=== PATIENT | female | born 1970 | race Hispanic/Latino ===

== ENCOUNTER 2022-06-16 12:39 | Observation (INO) | payer OTHER ==
[~2022-06-16] VITALS: Ht 157.5 cm; Wt 100.8 kg
[2022-06-16] MEDS ORDERED: PANTOPRAZOLE 40 MG/VIAL IVP SCH (13:05)
[2022-06-16] MEDS ORDERED: PANTOPRAZOLE 40 MG/VIAL ONE (13:10)
[2022-06-16 13:27] LABS: BASOPHILS % (AUTO) 0.3 % (0.0-5.0); EOSINOPHILS % (AUTO) 1.2 % (0.0-8.0); HEMATOCRIT 42.8 % (36-48); MEAN CORPUSCULAR HEMOGLOBIN 25.9 pg (27.0-33.0); MEAN CORPUSCULAR HGB CONC 32.2 g/dL (32.0-36.0); MEAN CORPUSCULAR VOLUME 80.5 fL (79-99); NEUTROPHILS % (AUTO) 45.7 % (40.0-77.0); PLATELET COUNT (AUTO) 208 K/uL (130-400); RED BLOOD CELL COUNT(AUTO) 5.32 MIL/uL (4.00-5.50)
[2022-06-16 13:47] LABS: ALBUMIN 3.6 g/dL (3.5-5.0); CREATININE 0.7 mg/dL (0.5-1.5); POTASSIUM 3.3 mmol/L (3.5-5.1); TOTAL PROTEIN, SERUM 7.6 g/dL (6.0-8.3)
[2022-06-16 14:02] LABS: APPEARANCE,URINE CLEAR (CLEAR); BILIRUBIN,URINE NEGATIVE (NEGATIVE); COLOR,URINE YELLOW (YELLOW); GLUCOSE, URINE (UA) >=1000 mg/dL (NEGATIVE); KETONES,URINE NEGATIVE (NEGATIVE); LEUKOCYTE ESTERASE ,URINE NEGATIVE (NEGATIVE); NITRATE,URINE NEGATIVE (NEGATIVE); OCCULT BLOOD,URINE SMALL (NEGATIVE); PROTEIN,URINE NEGATIVE (NEGATIVE); UROBILINOGEN,URINE 0.2 mg/dL (0.2-1.0)
[2022-06-16 14:15] LABS: BACTERIA,URINE Rare /HPF (None Seen); RBC,URINE 0-1 /HPF (0-1); YEAST,URINE BUDDING Few /HPF (None Seen)
[2022-06-16 14:16] LABS: B-TYPE NATRIURETIC PEPTIDE 76 pg/mL (0-100)
[2022-06-16 14:16] LABS: WBC,URINE None Seen /HPF (0-1)
[2022-06-16] MEDS: NITROGLYCERIN 0.4 MG SL TAB SL SCH ×2 (14:37→14:38)
[2022-06-16 14:55] LABS: HCG,QUALITATIVE URINE NEGATIVE (NEGATIVE)
[2022-06-16] MEDS ORDERED: 0.9%NACL 1000ML 1,000 ML IV SCH (15:30)
[2022-06-16] MEDS ORDERED: ONDANSETRON 4MG INJ IV PRN (15:30)
[2022-06-16] MEDS ORDERED: ACETAMINOPHEN 325 MG TAB PO PRN (15:30)
[2022-06-16] MEDS ORDERED: DIAZEPAM 5 MG TABLET PO ONE (15:30)
[2022-06-16 15:42] LABS: INR 0.94 (0.85-1.15); PROTHROMBIN TIME 10.3 SEC (9.6-11.6)
[2022-06-16 15:51] LABS: HEMOGLOBIN A1C 7.8 % (4.0-6.0)
[2022-06-16] MEDS ORDERED: LIDOCAINE HCL 1% 20 ML VIAL ONE (16:09)
[2022-06-16] MEDS ORDERED: MIDAZOLAM HCL 1 MG/ML 2ML VIAL ONE (16:09)
[2022-06-16] MEDS ORDERED: CEFAZOLIN SODIUM 1 GM VIAL ONE (16:09)
[2022-06-16] MEDS ORDERED: BUPIVACAINE/PF 0.25% 30ML VIAL IJ ONE (16:09)
[2022-06-16] MEDS ORDERED: FENTANYL CITRATE PF 50 MCG/1 ML 2ML VIAL ONE (16:10)
[2022-06-16] MEDS ORDERED: IOHEXOL-350 50ML VIAL IV ONE (16:49)
[2022-06-16 18:40] VITALS: BP 144/81
[2022-06-16 19:28] VITALS: BP 156/78
[2022-06-16] MEDS ORDERED: LISI5TAB21 PO (19:35)
[2022-06-16] MEDS ORDERED: METF-446 PO (19:37)
[2022-06-16] MEDS ORDERED: SEMA1PEN3 SQ (19:37)
[2022-06-16] MEDS ORDERED: GLIM4TAB36 PO (19:37)
[2022-06-16] MEDS: ACETAMINOPHEN 325 MG TAB PO PRN (20:05)
[2022-06-16] MEDS: FAMOTIDINE 20MG VIAL IV SCH (20:05)
[2022-06-16 23:42] VITALS: BP 115/73
[2022-06-17] MEDS: CEFAZOLIN SODIUM 1 GM VIAL IVP ONE ×2 (00:03→00:13)
[2022-06-17] MEDS: ACETAMINOPHEN 325 MG TAB PO PRN ×3 (00:51→10:47)
[2022-06-17 03:41] LABS: BASOPHILS % (AUTO) 0.4 % (0.0-5.0); EOSINOPHILS % (AUTO) 1.9 % (0.0-8.0); HEMATOCRIT 36.9 % (36-48); LYMPHOCYTES % (AUTO) 46.6 % (21.0-51.0); MEAN CORPUSCULAR HEMOGLOBIN 25.9 pg (27.0-33.0); MEAN CORPUSCULAR HGB CONC 32.2 g/dL (32.0-36.0); MEAN CORPUSCULAR VOLUME 80.2 fL (79-99); MONOCYTES % (AUTO) 11.4 % (3.0-13.0); NEUTROPHILS % (AUTO) 38.9 % (40.0-77.0); PLATELET COUNT (AUTO) 187 K/uL (130-400); RED CELL DISTRIBUTION WIDTH 14.1 % (11.0-15.5); WHITE BLOOD COUNT (AUTO) 5.2 K/uL (4.8-10.8)
[2022-06-17 03:57] LABS: CREATININE 0.7 mg/dL (0.5-1.5); MAGNESIUM 1.6 mg/dL (1.80-2.40); PHOSPHORUS 3.5 mg/dL (2.5-4.9)
[2022-06-17 04:02] VITALS: BP 123/61
[2022-06-17] MEDS ORDERED: MAGNESIUM OXIDE 400 MG TABLET PO SCH (04:30)
[2022-06-17] MEDS ORDERED: KCL 20 MEQ ERTAB PO ONE (04:30)
[2022-06-17 07:04] VITALS: BP 136/72
[2022-06-17] MEDS ORDERED: KCL 20 MEQ ERTAB PO SCH (07:30)
[2022-06-17] MEDS: FAMOTIDINE 20MG VIAL IV SCH (08:01)
[2022-06-17 11:28] VITALS: BP 152/63
[2022-06-17 15:24] VITALS: BP 124/78
== END 2022-06-17 15:58 | disposition home or self-care (01) ==
LOC: EDH 12:39 → EDHIP 15:23 → INTOOBSV 15:23 → 2DH 18:36
PROVIDERS: ADMIT Internal Medicine; ATTEND Internal Medicine
DX: I44.2 Atrioventricular block, complete (principal); E87.6 Hypokalemia; E11.9 Type 2 diabetes mellitus without complications; I10 Essential (primary) hypertension; G47.33 Obstructive sleep apnea (adult) (pediatric); E78.00 Pure hypercholesterolemia, unspecified; E66.9 Obesity, unspecified; Z86.16 Personal history of COVID-19; Z90.49 Acquired absence of other specified parts of digestive tract; Z95.0 Presence of cardiac pacemaker; Z79.899 Other long term (current) drug therapy
CPT/HCPCS: 33208; 83036; 84443; 82550; 84484 ×2; 80053; 83880; 85025 ×2; 85378; 85610; 81001; 81025; 36415 ×2; 71045 ×2; 99291; 94660; 96374; 96375; 93005 ×2; 96376; 83735; 84100; 80048; C1785; C1898 ×2; C1894; J3490 ×3; J3010; J0690 ×2; J2250; C9113; Q9967; G0378; 99156; 99157

== ENCOUNTER → 2024-01-27 | Outpatient (CLI) | payer OTHER ==
[~2024-01-27] MED LIST: METF-446 PO; SEMA1PEN3 SQ
== END | disposition home or self-care (01) ==
LOC: RAH 01-03 14:34
PROVIDERS: ATTEND Student in an Organized Health Care Education/Training Program
DX: M25.411 Effusion, right shoulder (principal); M25.711 Osteophyte, right shoulder; M75.41 Impingement syndrome of right shoulder
CPT/HCPCS: 73221

== ENCOUNTER → 2025-02-28 | Outpatient (CLI) | payer OTHER ==
--- NOTE | 2025-02-28 15:21 | HMCIMG ---
CT ABDOMEN/PELVIS W/O CONTRAST HISTORY: Hydronephrosis COMPARISON: None TECHNIQUE: Multiple sequential axial images of the abdomen and pelvis were obtained from the dome of the diaphragm through symphysis pubis. Patient was not given contrast through intravenous route. Oral contrast was not given. FINDINGS: No pleural effusion is seen bilaterally. There is no evidence of parenchymal disease or pulmonary nodule of the visualized lower lungs. Degenerative changes of the thoracolumbar spine are present. The heart is not enlarged. The liver, spleen, adrenal glands and pancreas are unremarkable. There are bilateral extrarenal pelvis. Parapelvic renal cysts. If needed, Nuclear Renal scan may be helpful. There is a small periumbilical hernia with fat content. There is no evidence of hydronephrosis bilaterally. No evidence of renal stone is seen. Fecal material is seen in the colon. There are normal size retroperitoneal and mesenteric lymph nodes. No ascites is seen. Atherosclerotic changes are present. Pelvic sidewalls are symmetric bilaterally. Bladder is well distended without wall thickening. IMPRESSION: 1. There are bilateral extrarenal pelvis. Parapelvic renal cysts. If needed, Nuclear Renal scan may be helpful. There is no evidence of hydronephrosis bilaterally. No evidence of renal stone is seen. There is a small periumbilical hernia with fat content. CT was performed with one or more following dose reduction techniques: automated exposure control, adjustment of the mA and kv according to patient's size, or use of a iterative reconstruction technique.
== END | disposition home or self-care (01) ==
LOC: RAH 12:24
PROVIDERS: ATTEND Internal Medicine Nephrology
DX: N28.1 Cyst of kidney, acquired (principal); N13.30 Unspecified hydronephrosis; K42.9 Umbilical hernia without obstruction or gangrene; M47.815 Spondylosis without myelopathy or radiculopathy, thoracolumbar region; I70.0 Atherosclerosis of aorta
CPT/HCPCS: 74176

== ENCOUNTER → 2025-08-22 | Outpatient (CLI) | payer OTHER ==
[~2025-08-22] VITALS: Ht 5.1 cm; Wt 100.2 kg
[~2025-08-22] MED LIST changes: +ALBU18HF7 IH; +ATEN25TA PO; +BUDE10.26 IH; +EMPA25TA PO; +IBUP-2077 PO; +LISI20TA24 PO; +MECL-226 PO; +METF-444 PO; -METF-446 PO; +METH-811 PO; +OMEP40CA21 PO; +OXCA150T27 PO; +PSYL575P22 PO; -SEMA1PEN3 SQ; +SIMV-43 PO; +SUMA50TA17 PO; +TRAMADOL HCL PO
[2025-08-22 09:59] LABS: IMMATURE GRANULOCYTE ABSOLUTE 0.07 K/uL (0-1); NUCLEATED RED BLOOD CELLS 0.0 % (0.0-0.19); PLATELET COUNT (AUTO) 217 K/uL (130-400); RED BLOOD CELL COUNT(AUTO) 5.25 MIL/uL (4.00-5.50); RED CELL DISTRIBUTION WIDTH 12.8 % (11.0-15.5); WHITE BLOOD COUNT (AUTO) 7.1 K/uL (4.8-10.8)
--- NOTE | 2025-08-22 10:28 | NUR ---
BARIATRIC INITIAL ASSESSMENT VISIT 1 OF 6 Wt: 221 lbs DOS: 08/22/25 Pt seeking bariatric procedure to aid in wt loss and improve medical health conditions. Pt reported MD yanez/ben triana, takes vit. 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, 2 children live at home, has a young grandchild at home, no one is a picky eater at home, goes grocery shopping, everyone cooks for themselves, Pt is allergic to pork and a certain amount of dairy, BG check 1x in the AM fasting, eats 3 meals per day + 2 snacks, regular soda 1x per week, salty snacks 1-2 x per day, fast food 1 x per week, takes 30 mins to eat, does not struggle with emotional eating, no dx with anxiety but feels anxiety, 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 RD conducted 24 hr recall: Breakfast: 2 eggs + 1 white toast + regular sugar + coffee Lunch: tuna - avocado + 3 saltine crackers + 1/2 regular gatorade Dinner: noddle soup + white bread w/ 1 slice of turkey deli meat Snack(s): [address] reviewed portion sizes with pt, reviewed healthy plate, informed Pt of importance of protein intake, demonstrated DM chart, reviewed carbohydrate sources, Pt verbalized understanding. Pt completed wt management program diet readiness questionnaire. Results are as follows: Section 1: Goals and Attitudes. Score of 28. The path is clear with respect to goals and attitudes. Sections 2: Hunger and Eating cues. Score 7. You may have a moderate tendency to eat just because food is available. Dieting may be easier for you if you try to resist external cues and eat only when you are physically hungry. Section 3: Control over Eating. Score 4. You recover rapidly from mistakes. However, if you frequently alternate between eating out of control and dieting strictly, you may have a serious eating problem and should get professional help. Section 4: Jewell Eating and Purging: Score 0. It appears that binge eating, and purging is not a problem for you. Section 5: Emotional Eating: Score 4. You do not appear to let your emotions affect your eating. Section 6: Exercise Patterns and Attitudes: Score 20. It looks like the path is clear for you to be active. Now think of ways to get motivated. Goals Established: -walk 3 x per week for 15 min -increase protein intake -start consuming SF products Pt in agreement with goals and is aware she will need to cut carbonated beverages, sweets and caffeine prior to surgery. Recommended for Pt to complete visits with Dietitian to prepare for bariatric procedure. Thank you for this visit. Addendum: 08/22/25 at [address] Amended: Links added.
[2025-08-22 10:37] LABS: % IRON SATURATION 23.7 % (22-44); IRON, SERUM 97.0 mcg/dL (50-170)
[2025-08-22 11:07] LABS: ASPARTATE AMINOTRANSFERASE 13 U/L (10-37); CREATININE 0.6 mg/dL (0.5-1.0); GLOMERULAR FILTR. RATE CALC 107 mL/min (>90); GLUCOSE,RANDOM 101 mg/dL (70-105); LDL DIRECT 142 mg/dL (0-99); SODIUM SERUM 140 mmol/L (136-145); TOTAL PROTEIN, SERUM 7.9 g/dL (6.0-8.3); UREA NITROGEN, BLOOD 15 mg/dL (7-18)
== END | disposition home or self-care (01) ==
LOC: DTH 08:04
PROVIDERS: ATTEND Surgery
DX: E66.01 Morbid (severe) obesity due to excess calories (principal); G47.33 Obstructive sleep apnea (adult) (pediatric); I10 Essential (primary) hypertension; Z71.3 Dietary counseling and surveillance; K21.9 Gastro-esophageal reflux disease without esophagitis; E11.9 Type 2 diabetes mellitus without complications; E78.00 Pure hypercholesterolemia, unspecified; K76.0 Fatty (change of) liver, not elsewhere classified; M19.91 Primary osteoarthritis, unspecified site
CPT/HCPCS: 36415; 80053; 80061; 82306; 82607; 82728; 82746; 83036; 83540; 83550; 83735; 84207; 84425; 84436; 84443; 84446; 84481; 84590; 84630; 85025; 97802

== ENCOUNTER → 2025-09-04 | Outpatient (CLI) | payer OTHER ==
--- NOTE | 2025-09-04 11:00 | NUR ---
BARIATRIC FOLLOW UP NOTE VISIT 2 OF 6 Wt: 223.8 LBS DOS:09/04/25 Upon follow up visit, pt presents with a 2 lb wt gain. Pt continues with steroid shots, has not started SF items, liked protein shakes, has been walking 30 mins 3x per week, continues with MVI QD + 2,[address] conducted 24 hr food recall. Breakfast: 1 egg + white bread + coffee + almond milk Lunch: fish soup + veggies Dinner: white bread w/ peanut butter + banana + honey S: fruit jello + [address] reviewed simple CHO and complex CHO intake, reviewed labs, encouraged Pt to see PCP in regards to her labs,encouraged pt to decrease soft drink (even sugar free) consumption secondary to carbonation and caffeine, pt verbalized understanding. RD and pt established goals for next month: -increase protein in meals -walking 35 mins 3x per week -start incorporating SF items Thank you for this visit Addendum: 09/04/25 at [address] Amended: Links added.
== END | disposition home or self-care (01) ==
LOC: DTH 09:55
PROVIDERS: ATTEND Surgery
DX: E66.01 Morbid (severe) obesity due to excess calories (principal); G47.33 Obstructive sleep apnea (adult) (pediatric); I10 Essential (primary) hypertension; M19.91 Primary osteoarthritis, unspecified site; Z71.3 Dietary counseling and surveillance; K21.9 Gastro-esophageal reflux disease without esophagitis; E11.9 Type 2 diabetes mellitus without complications; E78.00 Pure hypercholesterolemia, unspecified; K76.0 Fatty (change of) liver, not elsewhere classified
CPT/HCPCS: 97803

== ENCOUNTER → 2025-10-04 | Outpatient (CLI) | payer OTHER ==
--- NOTE | 2025-10-04 10:12 | EKG ---
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 : 1970 Requested By: JESSICA HOLMAN Order Number: [id number] Reading MD: Joselyn Ortiz Measurements Intervals [place] Rate: 87 P: 57 MA: 224 QRS: 89 QRSD: 86 T: -2 QT: 383 QTc: 458 Interpretive Statements Sinus rhythm Atrial premature complexes Prolonged MA interval Low voltage, precordial leads Borderline T abnormalities, diffuse leads Compared to ECG 07/13/2025 14:29:41 Atrial premature complex(es) now present First degree AV block now present T-wave abnormality now present Right-axis deviation no longer present Electronically Signed On 10-04-2025 21:15:26 [employer]ION PI[employer]URE [employer]OTOGRAPHER by Joselyn Ortiz Please click the below link to view image of tracing.
--- NOTE | 2025-10-04 17:02 | HMCIMG ---
EXAM: CR CHEST, 1 VIEW CLINICAL HISTORY: PRE-OP (Hx) COMPARISON: None provided TECHNIQUE: Single frontal radiograph of the chest was obtained. FINDINGS: Lines/Devices: Pacemaker: Device and leads are visualized in appropriate position. No evidence of lead fracture or displacement. Lungs: Clear lung combs; no focal consolidation, pleural effusion, or pneumothorax. No ground-glass opacities are observed. Prominent bilateral hilar vascular markings noted. Mild bilateral peribronchial thickening suggesting mild bronchitis.Diaphragm and costophrenic angles are normal. Cardiac silhouette: Normal in size and contour. The central airway and mediastinal contours are unremarkable. Bones and soft tissues: Small well defined rounded sclerotic lesion is seen at the left humeral neck measuring 7mm. IMPRESSION: 1. Mild bilateral peribronchial thickening suggesting mild bronchitis. /[place]
== END | disposition home or self-care (01) ==
LOC: LAB 08:00
PROVIDERS: ATTEND Surgery
DX: I49.1 Atrial premature depolarization (principal); I44.0 Atrioventricular block, first degree; I10 Essential (primary) hypertension; E11.9 Type 2 diabetes mellitus without complications; M19.91 Primary osteoarthritis, unspecified site; G47.33 Obstructive sleep apnea (adult) (pediatric); E66.01 Morbid (severe) obesity due to excess calories; E78.00 Pure hypercholesterolemia, unspecified; K76.0 Fatty (change of) liver, not elsewhere classified; K21.9 Gastro-esophageal reflux disease without esophagitis; J98.09 Other diseases of bronchus, not elsewhere classified
CPT/HCPCS: 71045; 93005

== ENCOUNTER → 2025-10-04 | Outpatient (CLI) | payer OTHER | END | disposition home or self-care (01) | LOC: DTH 07:38 | PROVIDERS: ATTEND Surgery | DX: E66.01 Morbid (severe) obesity due to excess calories (principal); I10 Essential (primary) hypertension; K21.9 Gastro-esophageal reflux disease without esophagitis; G47.33 Obstructive sleep apnea (adult) (pediatric); M19.91 Primary osteoarthritis, unspecified site; K76.0 Fatty (change of) liver, not elsewhere classified; Z71.3 Dietary counseling and surveillance | CPT/HCPCS: 97803 ==

== ENCOUNTER → 2025-10-11 | Outpatient (CLI) | payer OTHER | END | disposition home or self-care (01) | LOC: DTH 09:55 | PROVIDERS: ATTEND Surgery | DX: E66.01 Morbid (severe) obesity due to excess calories (principal); G47.33 Obstructive sleep apnea (adult) (pediatric); I10 Essential (primary) hypertension; K21.9 Gastro-esophageal reflux disease without esophagitis; M19.91 Primary osteoarthritis, unspecified site; K76.0 Fatty (change of) liver, not elsewhere classified; Z71.3 Dietary counseling and surveillance | CPT/HCPCS: 97803 ==

== ENCOUNTER → 2025-10-12 | Outpatient (CLI) | payer OTHER | END | disposition home or self-care (01) | LOC: DTH 08:54 | PROVIDERS: ATTEND Surgery | DX: E66.01 Morbid (severe) obesity due to excess calories (principal); I10 Essential (primary) hypertension; G47.33 Obstructive sleep apnea (adult) (pediatric); K21.9 Gastro-esophageal reflux disease without esophagitis; M19.91 Primary osteoarthritis, unspecified site; K76.0 Fatty (change of) liver, not elsewhere classified; Z71.3 Dietary counseling and surveillance | CPT/HCPCS: 97803 ==

== ENCOUNTER → 2025-10-16 | Outpatient (CLI) | payer OTHER | END | disposition home or self-care (01) | LOC: DTH 08:19 | PROVIDERS: ATTEND Surgery | DX: E66.01 Morbid (severe) obesity due to excess calories (principal); G47.33 Obstructive sleep apnea (adult) (pediatric); I10 Essential (primary) hypertension; K21.9 Gastro-esophageal reflux disease without esophagitis; M19.91 Primary osteoarthritis, unspecified site; K76.0 Fatty (change of) liver, not elsewhere classified; Z71.3 Dietary counseling and surveillance; E78.00 Pure hypercholesterolemia, unspecified; E11.9 Type 2 diabetes mellitus without complications | CPT/HCPCS: 97803 ==

== ENCOUNTER → 2025-10-17 | Outpatient (CLI) | payer OTHER | END | disposition home or self-care (01) | LOC: DTH 09:23 | PROVIDERS: ATTEND Surgery | DX: E66.01 Morbid (severe) obesity due to excess calories (principal); I10 Essential (primary) hypertension; G47.33 Obstructive sleep apnea (adult) (pediatric); K21.9 Gastro-esophageal reflux disease without esophagitis; M19.91 Primary osteoarthritis, unspecified site; K76.0 Fatty (change of) liver, not elsewhere classified; Z71.3 Dietary counseling and surveillance | CPT/HCPCS: 97803 ==

== ENCOUNTER → 2025-10-18 | Outpatient (CLI) | payer OTHER | END | disposition home or self-care (01) | LOC: DTH 09:05 | PROVIDERS: ATTEND Surgery | DX: E66.01 Morbid (severe) obesity due to excess calories (principal); I11.0 Hypertensive heart disease with heart failure; I50.9 Heart failure, unspecified; E11.9 Type 2 diabetes mellitus without complications; K21.9 Gastro-esophageal reflux disease without esophagitis; G47.33 Obstructive sleep apnea (adult) (pediatric); M19.91 Primary osteoarthritis, unspecified site; K76.0 Fatty (change of) liver, not elsewhere classified; Z71.3 Dietary counseling and surveillance; Z68.39 Body mass index [BMI] 39.0-39.9, adult | CPT/HCPCS: 97803 ==